=== PATIENT | female | born 1990 | race American Indian/Alaskan Native ===

== ENCOUNTER 2022-02-13 13:55 | Emergency (ER) | payer SELFPAY ==
--- NOTE | 2022-02-13 17:01 | XRay Report ---
LEFT ANKLE 2 VIEW(S) INDICATION / CLINICAL INFORMATION: ANKLE PAIN COMPARISON: None available. FINDINGS: BONES / JOINT(S): No acute fracture or subluxation. No significant arthritis. SOFT TISSUES: No significant abnormality. ADDITIONAL FINDINGS: None. IMPRESSION: 1. No acute findings. Signer Name: Dejon Enriquez MD Signed: 02/13/2022 4:57 PM Workstation Name: [id number]
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
[2022-02-13 17:50] VITALS: BP 110/60
== END 2022-02-13 18:00 | disposition home or self-care (01) ==
LOC: ED 13:55
DX: M25.572 Pain in left ankle and joints of left foot (principal); Z79.899 Other long term (current) drug therapy; Z72.89 Other problems related to lifestyle; Z91.040 Latex allergy status
CPT/HCPCS: 99283